=== PATIENT | female | born 1995 | race African-American/Black ===

== ENCOUNTER 2018-05-26 12:50 | Emergency (ER) | payer OTHER ==
[~2018-05-26] VITALS: Ht 167.6 cm; Wt 56.2 kg
[2018-05-26] MEDS ORDERED: PRENATABS FA T1 EACH PO (13:03)
[2018-05-26 13:16] VITALS: BP 123/86
== END 2018-05-26 13:23 | disposition short-term general hospital (02) ==
LOC: ER 12:50
DX: O60.23X0 Term delivery with preterm labor, third trimester, not applicable or unspecified (principal); Z3A.39 39 weeks gestation of pregnancy